=== PATIENT | male | born 1960 | race Asian ===

== ENCOUNTER 2019-09-23 17:00 | Emergency (ER) | payer OTHER ==
[~2019-09-23] VITALS: Ht 175.3 cm; Wt 95.3 kg
[2019-09-23] MEDS ORDERED: ONDANSETRON ODT 4 MG TAB PO ONE (19:45)
[2019-09-23] MEDS ORDERED: MORPHINE SULF INJ 2 MG/ML SYRINGE 1ML IM ONE (19:45)
[2019-09-23 20:33] VITALS: BP 164/103
== END 2019-09-23 21:22 | disposition home or self-care (01) ==
LOC: ER 17:00 → EDBD 17:00 → ER 21:22
DX: M54.6 Pain in thoracic spine (principal); M25.511 Pain in right shoulder; V49.9XXA Car occupant (driver) (passenger) injured in unspecified traffic accident, initial encounter; Y93.89 Activity, other specified; Y92.89 Other specified places as the place of occurrence of the external cause; Y99.8 Other external cause status
CPT/HCPCS: 70450; 72040; 72070; 96372; 99284; J2270; Q0162